=== PATIENT | male | born 1955 | race Caucasian/White ===

== ENCOUNTER → 2016-09-10 | Outpatient (CLI) | payer BC, OTHER ==
--- NOTE | 2016-09-11 08:52 | XR ---
EXAMINATION TYPE: XR lumbosacral spine min 4V DATE OF EXAM: 09/10/2016 4:17 PM COMPARISON: NONE HISTORY: Chronic pain TECHNIQUE: 5 view lumbar spine FINDINGS: Mild facet hypertrophy is present L5-S1. Remaining facets are normal. No spondylolysis is e vident. No spondylolytic defects are evident. No spondylolisthesis is present. There are some degener ative disc changes posteriorly at L4-5. IMPRESSION: 1. Mild posterior disc space narrowing L4-5.
== END | disposition home or self-care (01) ==
LOC: RADXRYALE 15:58
PROVIDERS: ATTEND Family Medicine
DX: M51.36 Other intervertebral disc degeneration, lumbar region (principal); M54.5 Low back pain; G89.29 Other chronic pain
CPT/HCPCS: 72110

== ENCOUNTER → 2016-09-17 | Outpatient (CLI) | payer BC, OTHER ==
--- NOTE | 2016-09-17 08:48 | US ---
EXAMINATION TYPE: US abdomen complete DATE OF EXAM: 09/17/2016 8:36 AM COMPARISON: NONE CLINICAL HISTORY: R10.12 LT UPPER QUAD PAIN,K59.00 CONSTIPATION,R10.31. Symptoms lasting for months. EXAM MEASUREMENTS: Liver Length: 19.2cm Gallbladder Wall: 0.2cm CBD: 0.4cm Spleen: 11.2cm Right Kidney: 10.2 x 4.9 x 5.1cm Left Kidney: 11.6 x 5.0 x 6.2cm TECHNOLOGIST IMPRESSION: overlying bowel gas limits exam Pancreas: not seen due to bowel gas Liver: enlarged, difficult to penetrate, sits up high within ribcage Gallbladder: wnl Evidence for sonographic Howell's sign: no CBD: wnl Spleen: wnl Right Kidney: wnl Left Kidney: wnl Upper IVC: wnl Abd Aorta: proximal portion obscured by gas otherwise wnl The liver is heterogenous .The intrahepatic portion of the IVC and proximal abdominal aorta are withi n normal limits. There is no evidence of cholelithiasis. Common bile duct is unremarkable. The vis ualized portions of the pancreas are homogenous. The spleen is unremarkable. Kidneys are symmetric and free of hydronephrosis. No renal lesions are seen. IMPRESSION: Hepatic steatosis
== END | disposition home or self-care (01) ==
LOC: RADUSWWP 08:02
PROVIDERS: ATTEND Family Medicine
DX: K76.0 Fatty (change of) liver, not elsewhere classified (principal)
CPT/HCPCS: 76700

== ENCOUNTER → 2016-12-05 | Outpatient (CLI) | payer BC, OTHER ==
--- NOTE | 2016-12-06 08:18 | XR ---
EXAMINATION TYPE: XR chest 2V DATE OF EXAM: 12/05/2016 3:52 PM COMPARISON: 10/31/2015 HISTORY: 61-year-old male with cough and shortness of breath TECHNIQUE: Frontal and lateral views FINDINGS: The cardiomediastinal silhouette, aorta, and pulmonary vasculature are within normal limits. Slight e ventration of the left hemidiaphragm is unchanged. Lungs and pleural spaces are clear. IMPRESSION: No acute cardiopulmonary process.
== END ==
LOC: RADXRYALE 15:36
PROVIDERS: ATTEND Family Medicine
DX: R05 Cough (principal); R06.02 Shortness of breath
CPT/HCPCS: 71020

== ENCOUNTER 2017-06-03 16:45 | Emergency (ER) | payer BC, OTHER ==
[2017-06-03 17:27] VITALS: RESP 18
[2017-06-03] MEDS ORDERED: SODIUM CHLORIDE 0.9% 500 ML IV STA (17:55)
[2017-06-03] MEDS ORDERED: ASPIRIN 81 MG PO STA (17:55)
[2017-06-03 18:22] LABS: Basophils % (A) 0 %; CH 30.3; CHCM 33.7; Eosinophils # (A) 0.1 k/uL (0-0.7); Eosinophils % (A) 1 %; HCT 42.5 % (39.0-53.0); HDW 2.81; HGB 14.1 gm/dL (13.0-17.5); Luc # (Auto) 0.13; Luc % (Auto) 2; Lymphocytes # (A) 1.7 k/uL (1.0-4.8); Lymphocytes % (A) 21 %; MCH 29.9 pg (25.0-35.0); MCHC 33.2 g/dL (31.0-37.0); MCV 90.2 fL (80.0-100.0); Mean Platelet Volume 6.6; Monocytes # (A) 0.5 k/uL (0-1.0); Monocytes % (A) 6 %; Neutrophils # (A) 5.5 k/uL (1.3-7.7); Neutrophils % (A) 70 %; RBC 4.72 m/uL (4.30-5.90); RDW 12.7 % (11.5-15.5); WBC 7.9 k/uL (3.8-10.6); WBC (Perox) 8.13
[2017-06-03 18:31] LABS: INR 1.1 (<1.2); Partial Thromboplastin Time 27.6 sec (22.0-30.0); Prothrombin Time 10.9 sec (9.0-12.0)
[2017-06-03 18:33] LABS: ALT 25 U/L (21-72); AST 22 U/L (17-59); Alkaline Phosphatase 75 U/L (38-126); Anion Gap 8 mmol/L; Blood Urea Nitrogen 18 mg/dL (9-20); Calcium 9.3 mg/dL (8.4-10.2); Carbon Dioxide 29 mmol/L (22-30); Chloride 105 mmol/L (98-107); Glucose 85 mg/dL (74-99); Magnesium 1.9 mg/dL (1.6-2.3); Non-African American GFR(MDRD) >60 (>60 ml/min/1.73 sqM); Potassium 4.3 mmol/L (3.5-5.1); Sodium 142 mmol/L (137-145); Total Bilirubin 0.2 mg/dL (0.2-1.3); Total Protein 7.2 g/dL (6.3-8.2)
--- NOTE | 2017-06-03 18:38 | ED ---
Arrhythmia/Palpitations HPI - General Chief Complaint: Arrhythmia/Palpitations Stated Complaint: High Blood Pressure, High Pulse Time Seen by Provider: 06/03/17 17:53 Source: patient, RN notes reviewed Mode of arrival: ambulatory Limitations: no limitations - History of Present Illness Initial Comments: 61-year-old male present emergency Department chief complaint of palpitations. Patient states she was sitting at home felt like his heart was racing and did not feel right. Patient states that he has history of A. fib and states felt like in the past. Patient's had [address] Holder most recent one year ago. Patient states that he was advised, if his blood pressure elevated. Patient's blood pressure is elevated though he states he has not taken his nighttime meds that he normally takes this time. Patient states he did have some needlelike chest discomfort states that has resolved. Denies headache, dizziness, shortness breath, nausea vomiting. Patient states he does currently take medications for anticoagulation. - Related Data Home Medications Medication Instructions Recorded Confirmed Allopurinol [Zyloprim] 100 mg PO BID 07/28/14 06/03/17 Hydrochlorothiazide [Hydrodiuril] 12.5 mg PO DAILY 07/28/14 06/03/17 Acetaminophen [Tylenol] 650 mg PO Q4H PRN 07/29/14 06/03/17 Albuterol Inhaler [Ventolin Hfa 1 - 2 puff INHALATION RT-Q6H PRN 07/29/14 Inhaler] Cholecalciferol [Vitamin D3] 1,000 unit PO BID 07/29/14 06/03/17 Losartan [Cozaar] 50 mg PO DAILY 06/03/17 06/03/17 Lovastatin(Unknown Dose) 1 tab PO HS 06/03/17 06/03/17 Previous Rx's Medication Instructions Recorded Rivaroxaban [Xarelto] 20 mg PO W/SUPPER #30 tab 11/03/15 Allergies Allergy/AdvReac Type Severity Reaction Status Date / Time Sulfa (Sulfonamide Allergy Unknown Verified 06/03/17 17:27 Antibiotics) Review of Systems ROS Statement: Those systems with pertinent positive or pertinent negative responses have been documented in the HPI. ROS Other: All systems not noted in ROS Statement are negative. Past Medical History Past Medical History: Atrial Fibrillation, Asthma, GERD/Reflux, Hypertension, Pneumonia, Sleep Apnea/CPAP/BIPAP Additional Past Medical History / Comment(s): 10-31-15 AFIB RVR. 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 PSORIASES ON LOWER LEGS,ARTHRITIS,GOUT, CATARACT BUT NOT SURE WHICH EYE, PAST FALL,HIT HAED LACERATION SUTURED. History of Any Multi-Drug Resistant Organisms: MRSA Date of last positivie culture/infection: 2009 MDRO Source:: LT ELBOW Past Surgical History: Hernia Repair Additional Past Surgical History / Comment(s): right rotator cuff 07/28/14, left hand TENDON REPAIR, COLONOSCOPY.CHERYL INGUINAL HERNIA REPAIR INFANT, X3 CARDIAC ABLATIONS. Past Anesthesia/Blood Transfusion Reactions: No Reported Reaction Past Psychological History: No Psychological Hx Reported Smoking Status: Former smoker Past Alcohol Use History: None Reported Past Drug Use History: None Reported - Past Family History Mother Family Medical History: Asthma, Diabetes Mellitus Additional Family Medical History / Comment(s): PACEMAKER, HEAVY SMOKER. Father Family Medical History: No Reported History Additional Family Medical History / Comment(s): EMPHYSEMA General Exam Limitations: no limitations General appearance: alert, in no apparent distress Head exam: Present: atraumatic, normocephalic, normal inspection ENT exam: Present: normal exam, normal oropharynx, mucous membranes moist Neck exam: Present: normal inspection. Absent: tenderness, meningismus, lymphadenopathy Respiratory exam: Present: normal lung sounds bilaterally. Absent: respiratory distress, wheezes, rales, rhonchi, stridor Cardiovascular Exam: Present: regular rate, normal rhythm, normal heart sounds. Absent: systolic murmur, diastolic murmur, rubs, gallop, clicks GI/Abdominal exam: Present: soft, normal bowel sounds. Absent: distended, tenderness, guarding, rebound, rigid Neurological exam: Present: alert, oriented X3, CN II-XII intact Skin exam: Present: warm, dry, intact, normal color. Absent: rash Course Vital Signs 06/03/17 06/03/17 17:24 18:47 Temperature 99.3 F Pulse Rate 67 60 Respiratory 18 18 Rate Blood Pressure 179/79 165/77 O2 Sat by Pulse 98 97 Oximetry EKG Findings - EKG Comments: EKG Findings:: EKG performed at 17:05 sinus rhythm with PAC rate of 70 NH interval 172 QRS duration 94 QT/QTC 392/423 Medical Decision Making - Medical Decision Making 61-year-old male present emergency department for palpitations. Patient states that he's been symptom-free here. Patient may have an episode approximately favors he has a history. Patient currently takes Xarelto. 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 - Lab Data Result diagrams: 06/03/17 18:00 06/03/17 18:00 Lab Results 06/03/17 06/03/17 06/03/17 Range/Units 18:00 18:00 18:00 WBC 7.9 (3.8-10.6) k/uL RBC 4.72 (4.30-5.90) m/uL Hgb 14.1 (13.0-17.5) gm/dL Hct 42.5 (39.0-53.0) % MCV 90.2 (80.0-100.0) fL MCH 29.9 (25.0-35.0) pg MCHC 33.2 (31.0-37.0) g/dL RDW 12.7 (11.5-15.5) % Plt Count 279 (150-450) k/uL Neutrophils % 70 % Lymphocytes % 21 % Monocytes % 6 % Eosinophils % 1 % Basophils % 0 % Neutrophils # 5.5 (1.3-7.7) k/uL Lymphocytes # 1.7 (1.0-4.8) k/uL Monocytes # 0.5 (0-1.0) k/uL Eosinophils # 0.1 (0-0.7) k/uL Basophils # 0.0 (0-0.2) k/uL PT (9.0-12.0) sec INR (<1.2) APTT (22.0-30.0) sec Sodium 142 (137-145) mmol/L Potassium 4.3 (3.5-5.1) mmol/L Chloride 105 (98-107) mmol/L Carbon Dioxide 29 (22-30) mmol/L Anion Gap 8 mmol/L BUN 18 (9-20) mg/dL Creatinine 0.94 (0.66-1.25) mg/dL Est GFR (MDRD) Af Amer >60 (>60 ml/min/1.73 sqM) Est GFR (MDRD) Non-Af >60 (>60 ml/min/1.73 sqM) Glucose 85 (74-99) mg/dL Calcium 9.3 (8.4-10.2) mg/dL Magnesium 1.9 (1.6-2.3) mg/dL Total Bilirubin 0.2 (0.2-1.3) mg/dL AST 22 (17-59) U/L ALT 25 (21-72) U/L Alkaline Phosphatase 75 (38-126) U/L Total Creatine Kinase 56 (55-170) U/L CK-MB (CK-2) 0.6 (0.0-2.4) ng/mL CK-MB (CK-2) Rel Index 1.1 Troponin I <0.012 (0.000-0.034) ng/mL Total Protein 7.2 (6.3-8.2) g/dL Albumin 4.2 (3.5-5.0) g/dL TSH 2.040 (0.465-4.680) mIU/L 06/03/17 Range/Units 18:00 WBC (3.8-10.6) k/uL RBC (4.30-5.90) m/uL Hgb (13.0-17.5) gm/dL Hct (39.0-53.0) % MCV (80.0-100.0) fL MCH (25.0-35.0) pg MCHC (31.0-37.0) g/dL RDW (11.5-15.5) % Plt Count (150-450) k/uL Neutrophils % % Lymphocytes % % Monocytes % % Eosinophils % % Basophils % % Neutrophils # (1.3-7.7) k/uL Lymphocytes # (1.0-4.8) k/uL Monocytes # (0-1.0) k/uL Eosinophils # (0-0.7) k/uL Basophils # (0-0.2) k/uL PT 10.9 (9.0-12.0) sec INR 1.1 (<1.2) APTT 27.6 (22.0-30.0) sec Sodium (137-145) mmol/L Potassium (3.5-5.1) mmol/L Chloride (98-107) mmol/L Carbon Dioxide (22-30) mmol/L Anion Gap mmol/L BUN (9-20) mg/dL Creatinine (0.66-1.25) mg/dL Est GFR (MDRD) Af Amer (>60 ml/min/1.73 sqM) Est GFR (MDRD) Non-Af (>60 ml/min/1.73 sqM) Glucose (74-99) mg/dL Calcium (8.4-10.2) mg/dL Magnesium (1.6-2.3) mg/dL Total Bilirubin (0.2-1.3) mg/dL AST (17-59) U/L ALT (21-72) U/L Alkaline Phosphatase (38-126) U/L Total Creatine Kinase (55-170) U/L CK-MB (CK-2) (0.0-2.4) ng/mL CK-MB (CK-2) Rel Index Troponin I (0.000-0.034) ng/mL Total Protein (6.3-8.2) g/dL Albumin (3.5-5.0) g/dL TSH (0.465-4.680) mIU/L Disposition Clinical Impression: Palpitations Disposition: HOME SELF-CARE Condition: Stable Instructions: Palpitations (ED) Additional Instructions: Please return to the Emergency Department if symptoms worsen or any other concerns. Referrals: Jeremiah Bello DO [Primary Care Provider] - 1-2 days
[2017-06-03 18:43] LABS: Creatine Kinase 56 U/L (55-170)
--- NOTE | 2017-06-03 18:47 | XR ---
EXAMINATION TYPE: XR chest 2V DATE OF EXAM: 06/03/2017 COMPARISON: 12/05/2016 HISTORY: Dysrhythmia TECHNIQUE: Frontal and lateral views of the chest are obtained. FINDINGS: Heart and mediastinum are normal. Lungs are clear. Diaphragm is normal. Bony thorax is int act. The pulmonary vascularity is normal. IMPRESSION: Normal chest. No change.
[2017-06-03 18:56] LABS: Creatine Kinase MB 0.6 ng/mL (0.0-2.4); Troponin I <0.012 ng/mL (0.000-0.034)
[2017-06-03 19:52] VITALS: BP 137/70; PULSE 56; TEMP 97.6
== END 2017-06-03 19:51 | disposition home or self-care (01) ==
LOC: EC 16:45
DX: R00.2 Palpitations (principal); I10 Essential (primary) hypertension; I48.91 Unspecified atrial fibrillation; M10.9 Gout, unspecified; Z87.891 Personal history of nicotine dependence; Z79.01 Long term (current) use of anticoagulants; Z79.899 Other long term (current) drug therapy; Z88.2 Allergy status to sulfonamides; Z82.49 Family history of ischemic heart disease and other diseases of the circulatory system
CPT/HCPCS: 36415; 71020; 80053; 82550; 82553; 83735; 84443; 84484; 85025; 85610; 85730; 93005; 99283

== ENCOUNTER 2021-01-15 09:08 | Emergency (ER) | payer MEDICARE, OTHER ==
[2021-01-15 09:15] VITALS: BP 191/82; PULSE 52; RESP 20; TEMP 98.6
[2021-01-15] MEDS ORDERED: PROPARACAINE 0.5% OPHTH DROPS 15 ML BTL BOTH EYES STA (09:40)
[2021-01-15] MEDS ORDERED: FLUORESCEIN STRIPS 1 MG STRIP BOTH EYES ONE (09:40)
--- NOTE | 2021-01-15 10:13 | ED ---
General Adult HPI - General Chief complaint: Eye Problems Stated complaint: rt eye problems Time Seen by Provider: 01/15/21 09:40 Source: patient Mode of arrival: ambulatory Limitations: no limitations - History of Present Illness Initial comments: Dictation was produced using [employer] dictation software. please excuse any grammatical, word or spelling errors. Chief Complaint: 65-year-old male presents with floaters to the right eye History of Present Illness: Is 65-year-old male who presents to the emergency Department with floaters to the right eye. Patient states she does have decreased vision in the right eye just starting today. He was seen by an cartridge assembler last week for vision issues. He was told that he has early signs of macular degeneration but was not showing any signs of retinal detachment. States that his symptoms got worse this morning from him to come to the emergency department. [facility] and [facility] told to come to the ER because they were he was having a stroke. Patient does not have any blacking of his vision. He has no other focal neurologic deficits. Patient complains of some very mild sharp pain to his right eye. He states that he has been having floaters to his vision for the last 1 month. States his symptoms haven't been bad until today. He describes as seeing floaters and spiders in his vision. The ROS documented in this emergency department record has been reviewed and confirmed by me. Those systems with pertinent positive or negative responses h ave been documented in the HPI. All other systems are other negative and/or noncontributory. PHYSICAL EXAM: General Impression: Alert and oriented x3, not in acute distress HEENT: Normocephalic atraumatic, extra-ocular movements intact, pupils equal and reactive to light bilaterally, mucous membranes moist. Cardiovascular: Heart regular rate and rhythm Chest: Able to complete full sentences, no retractions, no tachypnea Abdomen: abdomen soft, non-tender, non-distended, no organomegaly Musculoskeletal: Pulses present and equal in all extremities, no peripheral edema Motor: no focal deficits noted Neurological: CN II-XII grossly intact, no focal motor or sensory deficits noted Skin: Intact with no visualized rashes Psych: Normal affect and mood Ocular exam. Right eye 20/70, left eye 20/25, no abnormal fluorescein uptake to the right cornea, right intraocular pressure is 14. Limited funduscopic exam ED course: 65-year-old male presents with vision changes to the right eye. He's had ongoing symptoms for 1 month however his symptoms were worse today. Patient did see an cartridge assembler one week ago was told that he had early findings of macular degeneration but did not show any findings of retinal detachment. States that he did have his retina evaluated. Signs upon arrival are within acceptable limits. [facility] and they told to come to the ER because he might be having a stroke. Patient does not have any symptoms of stroke. Focal neurologic deficit. He does have asymmetric visual deficit. At this point clinical symptoms are concerning for retinal disease. Case was discussed with on-call irrigation service technician Dr. Acevedo who requests that patient follow-up in the office at 2:30 PM tomorrow. Agreeable to plan. Patient be discharged. - Related Data Home Medications Medication Instructions Recorded Confirmed Allopurinol [Zyloprim] 100 mg PO BID 07/28/14 06/03/17 hydroCHLOROthiazide [Hydrodiuril] 12.5 mg PO DAILY 07/28/14 06/03/17 Acetaminophen [Tylenol] 650 mg PO Q4H PRN 07/29/14 06/03/17 Albuterol Inhaler (Mhu) [Ventolin 1 - 2 puff INHALATION RT-Q6H PRN 07/29/14 06/03/17 Hfa Inhaler (Mhu)] Cholecalciferol [Vitamin D3 (25 1,000 unit PO BID 07/29/14 06/03/17 Mcg = 1000 Iu)] Losartan [Cozaar] 50 mg PO DAILY 06/03/17 06/03/17 Lovastatin(Unknown Dose) 1 tab PO HS 06/03/17 06/03/17 Previous Rx's Medication Instructions Recorded Rivaroxaban [Xarelto] 20 mg PO W/SUPPER #30 tab 11/03/15 Allergies Allergy/AdvReac Type Severity Reaction Status Date / Time Sulfa (Sulfonamide Allergy Unknown Verified 01/15/21 09:15 Antibiotics) Review of Systems ROS Statement: Those systems with pertinent positive or pertinent negative responses have been documented in the HPI. ROS Other: All systems not noted in ROS Statement are negative. Past Medical History Past Medical History: Atrial Fibrillation, Asthma, GERD/Reflux, Hypertension, Pneumonia, Sleep Apnea/CPAP/BIPAP Additional Past Medical History / Comment(s): 3-21-16 AFIB RVR. 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 History of Any Multi-Drug Resistant Organisms: MRSA Date of last positivie culture/infection: 2009 MDRO Source:: LT ELBOW Past Surgical History: Hernia Repair Additional Past Surgical History / Comment(s): right rotator cuff 07/28/14, left hand TENDON REPAIR, COLONOSCOPY.CHERYL INGUINAL HERNIA REPAIR , X3 CARDIAC ABLATIONS. Past Anesthesia/Blood Transfusion Reactions: No Reported Reaction Past Psychological History: No Psychological Hx Reported Smoking Status: Never smoker Past Alcohol Use History: None Reported Past Drug Use History: None Reported - Past Family History Mother Family Medical History: Asthma, Diabetes Mellitus Additional Family Medical History / Comment(s): PACEMAKER, HEAVY SMOKER. Father Family Medical History: No Reported History Additional Family Medical History / Comment(s): EMPHYSEMA General Exam Limitations: no limitations Course Vital Signs 01/15/21 09:13 Temperature 98.6 F Pulse Rate 52 L Respiratory 20 Rate Blood Pressure 191/82 O2 Sat by Pulse 99 Oximetry Disposition Clinical Impression: Vision changes Disposition: HOME SELF-CARE Condition: Good Instructions (If sedation given, give patient instructions): Visual Floaters (ED) Additional Instructions: I spoke with Dr. Acevedo and he specifically requests that you follow-up in his office at 2:30 PM tomorrow 01/16/2021. Please call ahead to confirm your appointment. See phone number and address below. Is patient prescribed a controlled substance at d/c from ED?: No Referrals: Gregory Acevedo MD [STAFF PHYSICIAN] - 01/16/21 2:30 am
== END 2021-01-15 10:33 | disposition home or self-care (01) ==
LOC: EC 09:08
DX: H53.9 Unspecified visual disturbance (principal); I10 Essential (primary) hypertension; J45.909 Unspecified asthma, uncomplicated; K21.9 Gastro-esophageal reflux disease without esophagitis; G47.30 Sleep apnea, unspecified; I48.91 Unspecified atrial fibrillation; Z79.51 Long term (current) use of inhaled steroids
CPT/HCPCS: 99283